=== PATIENT | male | born 1995 | race Caucasian/White ===

== ENCOUNTER 2022-03-07 10:20 | Emergency (ER) | payer OTHER ==
[2022-03-07 10:41] VITALS: BP 130/76; PULSE 82; RESP 19; TEMP 98.6; BMI 25.0
[2022-03-07] MEDS ORDERED: ACETAMINOPHEN 500 MG TABLET (FP) PO ONE (11:24)
[2022-03-07] MEDS ORDERED: IBUPROFEN 600 MG TABLET (FP) PO ONE ×2 (11:24→11:28)
[2022-03-07] MEDS ORDERED: ACETAMINOPHEN 500 MG TABLET (FP) ONE (11:28)
[2022-03-07] MEDS ORDERED: BACITRACIN 15 GM TUBE TOPICAL OINTMENT TP ONE (12:18)
[2022-03-07] MEDS ORDERED: BACITRACIN 15 GM TUBE TOPICAL OINTMENT ONE (12:19)
== END 2022-03-07 12:24 | disposition home or self-care (01) ==
LOC: JERFT 10:20
DX: M25.551 Pain in right hip (principal); M54.50 Low back pain, unspecified; V28.09XA Other motorcycle driver injured in noncollision transport accident in nontraffic accident, initial encounter
CPT/HCPCS: 72100-TC-FY; 73502-TC-RT-FY; 99284-25